=== PATIENT | female | born 1955 | race Caucasian/White ===

== ENCOUNTER 2019-08-03 17:02 | Emergency (ER) | payer OTHER ==
[~2019-08-03] VITALS: Ht 152.4 cm; Wt 100.0 kg
[2019-08-03 17:39] VITALS: BP 172/56
[2019-08-03] MEDS ORDERED: ACETAMINOPHEN 325MG TABLET PO ONE (18:00)
== END 2019-08-03 18:47 | disposition home or self-care (01) ==
LOC: ER 17:02
DX: M25.511 Pain in right shoulder (principal); E11.9 Type 2 diabetes mellitus without complications; E78.00 Pure hypercholesterolemia, unspecified; I10 Essential (primary) hypertension; Z87.442 Personal history of urinary calculi; W01.0XXA Fall on same level from slipping, tripping and stumbling without subsequent striking against object, initial encounter; Y93.89 Activity, other specified; Y92.018 Other place in single-family (private) house as the place of occurrence of the external cause
CPT/HCPCS: 73030; 73060; 99284

== ENCOUNTER 2023-01-27 18:19 | Emergency (ER) | payer SELFPAY ==
[~2023-01-27] VITALS: Ht 162.6 cm; Wt 90.0 kg
[2023-01-27 18:30] VITALS: BP 148/74; O2SAT 97
[2023-01-27] MEDS ORDERED: TETANUS, DIPHTHERIA, PERTUSSIS VAC/PF 0.5ML (>10YR OLD) IM ONE ×2 (19:30→20:45)
[2023-01-27] MEDS ORDERED: TOPUD MT (21:41)
[2023-01-27 22:34] VITALS: PULSE 83; RESP 20; TEMP 98.3
== END 2023-01-27 22:37 | disposition home or self-care (01) ==
LOC: ER 18:19
DX: S01.01XA Laceration without foreign body of scalp, initial encounter (principal); E78.00 Pure hypercholesterolemia, unspecified; I10 Essential (primary) hypertension; Z87.442 Personal history of urinary calculi; Z98.890 Other specified postprocedural states; W19.XXXA Unspecified fall, initial encounter; Y93.89 Activity, other specified; Y92.89 Other specified places as the place of occurrence of the external cause; Y99.8 Other external cause status
CPT/HCPCS: 70450; 90715; 12002; 90471; 99285; Z7610 ×4

== ENCOUNTER 2023-01-31 19:13 | Emergency (ER) | payer SELFPAY ==
[~2023-01-31] VITALS: Ht 160 cm; Wt 104.0 kg
[~2023-01-31 19:13] MED LIST: TOPUD MT
[2023-01-31 19:40] VITALS: BP 138/73; PULSE 90; RESP 14; TEMP 98.4; O2SAT 98
== END 2023-02-01 05:13 | disposition left against medical advice (07) ==
LOC: ER 19:13
DX: Z48.01 Encounter for change or removal of surgical wound dressing (principal); Z53.21 Procedure and treatment not carried out due to patient leaving prior to being seen by health care provider
CPT/HCPCS: 99281

== ENCOUNTER 2023-02-02 17:00 | Emergency (ER) | payer SELFPAY ==
[~2023-02-02] VITALS: Ht 162.6 cm; Wt 104.0 kg
[2023-02-02 17:13] VITALS: BP 121/65; PULSE 98; RESP 17; TEMP 98.6; O2SAT 100
[2023-02-03] MEDS ORDERED: LIDOCAINE HCL 1% 10 MG/ML 10ML VIAL ONE (08:13)
== END 2023-02-02 18:22 | disposition home or self-care (01) ==
LOC: ER 17:00
DX: S01.01XD Laceration without foreign body of scalp, subsequent encounter (principal); E11.9 Type 2 diabetes mellitus without complications; Z98.890 Other specified postprocedural states; X58.XXXD Exposure to other specified factors, subsequent encounter
CPT/HCPCS: 99281

== ENCOUNTER 2024-02-02 17:48 | Emergency (ER) | payer SELFPAY ==
[~2024-02-02] VITALS: Ht 165.1 cm; Wt 78.0 kg
[2024-02-02 18:11] VITALS: O2SAT 99
[2024-02-02 20:17] LABS: BASOPHILS % 0.5 % (0.0-2.0); EOSINOPHILS % 1.4 % (0.0-5.0); HEMATOCRIT. 38.6 % (36.0-48.0); HEMOGLOBIN. 13.2 g/dL (12.0-16.0); MEAN CORPUSCULAR HEMOGLOBIN 31.3 pg (28.0-32.0); MEAN CORPUSCULAR HGB CONC 34.1 g/dL (31.0-37.0); MEAN CORPUSCULAR VOLUME 91.8 fL (81.0-99.0); MEAN PLATELET VOLUME 8.9 fl (7.4-10.4); MONOCYTES % 6.1 % (2.0-8.0); PLATELET 236 x1000/uL (130-400); RED CELL DISTRIBUTION WIDTH 12.9 % (11.6-14.6); WHITE BLOOD COUNT 7.5 x1000/uL (4.5-11.0)
[2024-02-02 20:20] LABS: CHLORIDE 103 mEq/L (98-107); POTASSIUM 4.4 mEq/L (3.5-5.1); SODIUM 136 mEq/L (136-145)
[2024-02-02 20:21] LABS: CARBON DIOXIDE 24 mEq/L (21-32)
[2024-02-02 20:22] LABS: CALCIUM 10.1 mg/dL (8.7-10.4)
[2024-02-02 20:26] LABS: CREATININE 1.3 mg/dL (0.6-1.0); GLUCOSE 330 mg/dL (70-105)
[2024-02-02 20:27] LABS: TROPONIN I HIGH SENSITIVITY 4 ng/L (3.0-34); UREA NITROGEN BLOOD 19 mg/dL (9-23)
[2024-02-02 20:29] LABS: BETA HYDROXYBUTYRATE 0.2 mMol/L (0.0-0.3)
[2024-02-02] MEDS: SODIUM CHLORIDE 0.9% 1,000 ML IV ONE (21:53)
[2024-02-02 21:58] VITALS: BP 139/80; PULSE 74; RESP 17; TEMP 36.61404; O2SAT 99
== END 2024-02-02 22:01 | disposition home or self-care (01) ==
LOC: ER 17:48
DX: E11.65 Type 2 diabetes mellitus with hyperglycemia (principal)
CPT/HCPCS: 99284; 80048; 82010; 85025; 84484; 36415; 93005; J7030